=== PATIENT | male | born 1965 | race Two or more races ===

== ENCOUNTER 2025-08-31 23:05 | Emergency (ER) | payer MEDICAID, SELFPAY ==
[2025-08-31 23:05] VITALS: BMI 24.0
--- NOTE | 2025-08-31 23:19 | EKG_ITS ---
[facility] Test Date: 2025-08-31 Pat Name: OFELIA SHER Department: Room: - Gender: Male Gut Dropper: : 1965 Requested By: ED Temporary Provider Order Number: [id number] Reading MD: ED Temporary Provider Measurements Intervals [place] Rate: 74 P: 45 NH: 128 QRS: -25 QRSD: 102 T: 43 QT: 407 QTc: 452 Interpretive Statements SINUS RHYTHM BORDERLINE LEFT AXIS DEVIATION [QRS AXIS < -20] INCOMPLETE RIGHT BUNDLE BRANCH BLOCK [90+ ms QRS DURATION, TERMINAL R IN V1/V2, 40+ ms S IN I/aVL/V4/V5/V6] No previous ECG available for comparison /store/S0/[id number]/[id number].pdf
[2025-08-31 23:39] VITALS: BP 162/86; PULSE 73; RESP 20; TEMP 36.6; O2SAT 98
--- NOTE | 2025-08-31 23:45 | XR_ITS ---
EXAMINATION: PA chest single view TECHNIQUE: Upright PA chest single view Date and time: August 31, 2025, 11:45 p.m. INDICATIONS: Chest pain cardiac palpitation today FINDINGS: Normal heart size No lobar pneumonia or pulmonary edema The osseous structures are intact IMPRESSION: No active disease
--- NOTE | 2025-08-31 23:46 | PD.EDRME ---
Rapid Medical Screening Exam RME Arrival date/time: 08/31/25 23:05 This is a case of 60-year-old male with no medical history came into the emergency room due to chest pain palpitation shortness of breath for 2 days after drinking energy drink persistence of the symptoms this patient decided to start consulted in the emergency room Chief Complaint: General Adult/Misc Complain Time Seen by Provider: 08/31/25 23:45 Vital signs: Vital Signs Temperature 97.9 F 08/31/25 23:39 Pulse Rate 73 08/31/25 23:39 Respiratory Rate 20 08/31/25 23:39 Blood Pressure 162/86 H 08/31/25 23:39 Pulse Oximetry (%) 98 08/31/25 23:39 Oxygen Delivery Method Room Air 08/31/25 23:39
[2025-09-01 00:29] LABS: Collection Type, Urine Clean Catch; Squamous Epithelial Cell,Urine 0 /hpf (0-5); WBC,Urine 0 /hpf (0-5)
[2025-09-01 00:32] LABS: Basophils # (Auto) 0.1 Thou/mm3 (0.0-0.2); Basophils % (Auto) 1 % (0-2.5); Eosinophils # (Auto) 0.5 Thou/mm3 (0.0-0.5); Eosinophils % (Auto) 6 % (0-10); Hematocrit 41.1 % (41.0-53.0); Hemoglobin 14.2 g/dL (13.5-16.0); Immature Granulocytes Auto 0.02 Thou/mm3 (0.00-0.00); Lymphocytes # (Auto) 3.2 Thou/mm3 (1.0-4.8); Lymphocytes % (Auto) 41 % (10-50); Mean Corpuscular HGB Conc 34.5 g/dl (31.0-37.0); Mean Corpuscular Hemoglobin 30.9 pg (25.0-35.0); Mean Corpuscular Volume 90 fL (80-100); Monocytes # (Auto) 0.8 Thou/mm3 (0.0-0.8); Monocytes % (Auto) 10 % (0-12); Neutrophils # (Auto) 3.4 Thou/mm3 (1.8-7.7); Neutrophils % (Auto) 43 % (37-80); Nucleated Red Blood Cell # 0.00 Thou/mm3 (0.00-0.00); Nucleated Red Blood Cell % 0 /100 WBC (0); Platelet Count 277 Thou/mm3 (140-440); RDW Standard Deviation 43.3 fL (35.1-43.9); Red Blood Count 4.59 Miln/mm3 (4.50-5.90); White Blood Count 7.9 Thou/mm3 (3.8-10.6)
[2025-09-01 00:49] LABS: B-Type Natriuretic Peptide < 20 pg/mL (0-100)
[2025-09-01 00:54] LABS: Alanine Aminotransferase 22 U/L (10-49); Albumin, Serum 3.9 gm/dL (3.5-5.0); Albumin/Globulin Ratio 1.6 (1.2-2.2); Alkaline Phosphatase 70 U/L (46-116); Anion Gap 9 (7-16); Aspartate Amino Transferase 22 U/L (0-34); BUN/Creatinine Ratio 11 Ratio (12-20); Bilirubin,Total 0.2 mg/dL (0.3-1.2); Blood Urea Nitrogen 11 mg/dL (9-23); Calcium 9.7 mg/dL (8.3-10.6); Calcium (Corrected) 9.8 mg/dL (8.5-10.1); Carbon Dioxide 31.5 mMol/L (20.0-31.0); Chloride 104 mMol/L (98-107); Creatinine (Component) 1.0 mg/dL (0.6-1.3); Estimated Creatinine Clearance 67.4 mL/min (>60); Globulin 2.5 gm/dL (2.3-3.5); Glucose 130 mg/dL (74-106); Lipase 36 U/L (12-53); Osmolality,Calculated 288 (275-295); Potassium 4.0 mMol/L (3.4-5.1); Sodium 144 mMol/L (136-145); Thyroid Stimulating Hormone 2.28 uIU/mL (0.55-4.78); Total Protein 6.4 gm/dL (5.7-8.2); Troponin I < 0.020 ng/mL (0.0-0.045); eGFR > 60 See Note
[2025-09-01 00:58] LABS: Amorphous Crystals,Urine Present (Absent); Bilirubin,Urine Negative (Negative); Blood,Urine Negative (Negative); Clarity,Urine Turbid (Clear/Hazy); Color,Urine Lt-Yellow (Lt Yel-Yel); Glucose, Urine Negative (Negative); Ketones,Urine Negative (Negative); Leukocyte Esterase,Urine Negative (Negative); Nitrite,Urine Negative (Negative); PH,Urine 7.5 (5.0-7.0); Protein,Urine Negative (Neg - Trace); RBC,Urine 1 /hpf (0-3); Specific Gravity,Urine 1.020 (1.001-1.035); Urobilinogen,Urine Negative mg/dL (0.0-1.0)
[2025-09-01 01:05] LABS: D-Dimer < 250 ng/mL (<600)
--- NOTE | 2025-09-01 02:01 | PD.EDARRY ---
ED Arrhythmia Palp. RME/HPI General Chief Complaint: General Adult/Misc Complain Stated Complaint: RAPID HR AFTER DRINKING ENERGY DRINK Time Seen by Provider: 08/31/25 23:45 Arrival date/time: 08/31/25 23:05 RME / HPI RME / HPI narrative: 08/31/25 23:05 This is a case of 60-year-old male with no medical history came into the emergency room due to chest pain palpitation shortness of breath for 2 days after drinking energy drink persistence of the symptoms this patient decided to start consulted in the emergency room --------- Dr. Muniz?s Main ED Evaluation: 60yo male with sudden onset of palpitations at 10p lasting ~20 minutes. No chest pain, lightheadedness, or near syncope. No reported lower extremity pain or swelling. PSH includes ocular surgery. Denies alcohol, tobacco, or illicit drug use. Cardiac Risk Factors: +DM, HTN, HLD. No family history of heart disease. Related Data Previous Rx's ?Medication ?Instructions ?Recorded albuterol sulfate 90 mcg/actuation 2 puff inhalation Q4H PRN 10/04/18 aerosol inhaler shortness of breath or wheezing #8.5 grams Allergies Allergy/AdvReac Type Severity Reaction Status Date / Time No Known Allergies Allergy Verified 02/17/19 00:54 Review of Systems Review of Systems Systems Reviewed: All systems reviewed, normal except as documented Past Medical History Past Medical History CARDIAC: Positive Cardiac Disorders and Hypertension; Negative Congestive Heart Failure RESPIRATORY: Negative Chronic Obstructive Pulmonary Disease (COPD) GENITOURINARY: Negative Renal Disease ENDOCRINE: Negative Diabetes Mellitus Type 1 or Diabetes Mellitus Type 2 Surgical History SURGICAL: Positive Eye Surgery Social History SMOKING STATUS: Never smoker ED Exam Narrative Physical exam: GENERAL APPEARANCE: alert and oriented x 4, resting comfortably, reports symptoms have resolved, well-developed, well-nourished, no acute distress VITALS: All vitals were reviewed and the pulse ox is 98% on room air, which is normal according to my interpretation. HEENT: Normocephalic, atraumatic; pupils equal, round, reactive to light; EOMI; mucous membranes pink, moist; oropharynx clear NECK: Supple LUNGS: CTABL; no wheezes, no rales, no rhonchi HEART: Regular rate, regular rhythm; normal S1, S2; no murmurs ABDOMEN: non distended; soft, no tenderness EXTREMITIES: atraumatic; no edema NEUROLOGIC: awake; alert and oriented x4; cranial nerves II-XII grossly intact; no focal sensory or motor deficits PSYCHIATRIC: appropriate mood and affect SKIN: warm, dry, normal color; no rashes Course Course Course Narrative: CXR is ordered for determining the etiology of palpitations. Quality Measures none Orders Category Date Time Status EKG (ED ONLY) *Do not use* NOW Care 08/31/25 23:19 Completed EKG (ED Only) Stat Exams 08/31/25 23:19 Draft XR chest 1V Stat Exams 08/31/25 23:45 Completed BNP [B-Type Natriuretic Peptide] Stat Lab 08/31/25 00:07 Completed CBC Stat Lab 08/31/25 00:07 Completed Comprehensive Metabolic Panel Stat Lab 08/31/25 00:07 Completed D-Dimer Stat Lab 08/31/25 00:07 Completed Lipase Stat Lab 08/31/25 00:07 Completed TSH [Thyroid Stimulating Hormone] Stat Lab 08/31/25 00:07 Completed Troponin I Stat Lab 08/31/25 00:07 Completed Urinalysis Stat Lab 08/31/25 23:54 Completed Vital Signs Vital signs: Vital Signs Temperature 97.9 F 08/31/25 23:39 Pulse Rate 73 08/31/25 23:39 Respiratory Rate 20 08/31/25 23:39 Blood Pressure 162/86 H 08/31/25 23:39 Pulse Oximetry (%) 98 08/31/25 23:39 Oxygen Delivery Method Room Air 08/31/25 23:39 Arrhythmia/Palpitations MDM Narrative MDM Narrative:: Scribe Attestation: 09/01/25 Francoise Ruiz am scribing for and in the presence of Dr. Muniz. 60yo male with sudden onset of palpitations at 10p lasting ~20 minutes. No chest pain, lightheadedness, or near syncope. Please see PE findings. Lab markers including CBC, chemistries, and troponin are unremarkable. UA without evidence of infection. CXR obtained and is within normal limits. EKG without infarction, ischemia, or pericarditis. Further inquiry indicates patient had drank an energy drink late afternoon/early evening, which he typically drinks daily. Patient initially presented with HR 110-120 and spontaneously overtime reduced to 70-80. No signs of accessory pathway, [place], or prolonged QT syndrome. After period of observation, patient considered stable for discharge. Will recommend patient avoids energy drinks, increase fluid hydration, and follow-up with PMD for consideration of outpatient holter monitoring. Patient data External records reviewed:: [facility] previous records (Per chart review, patient was seen here on 10/04/18 for shortness of breath.) Clinical information provided by:: patient Social determinants that could affect healthcare access:: none Patient has the following chronic illnesses:: HTN How is presenting disease/condition affected by chronic disease/condition?: uneffected by Evaluation data The following diagnostics were reviewed and interpreted by me:: lab results, radiology exam(s) and EKG tracing(s) Lab and/or radiology exams considered but not ordered:: none Interpretation Summary: EKG done at 2339, sinus rhythm, rate of 79, no acute pathological ST segment changes, normal intervals, left axis deviation, underlying RBBB, according to my interpretation. [facility] Report Signed Patient: OFELIA SHER Record#: [id number] Birthdate: 1965 Age/Sex: 60 / M Location: [facility] Attending Dr: Ordering Physician: Yolanda Andrew Date of Service: 08/31/25 Procedure(s): XR chest 1V Accession Number(s): [id number] cc: Bear Veladre MD; Yolanda Andrew~ EXAMINATION: PA chest single view TECHNIQUE: Upright PA chest single view Date and time: August 31, 2025, 11:45 p.m. INDICATIONS: Chest pain cardiac palpitation today FINDINGS: Normal heart size No lobar pneumonia or pulmonary edema The osseous structures are intact IMPRESSION: No active disease Dictated By: Bear Velarde MD Signed By: <Electronically signed by Bear Velarde MD in OV> 08/31/25 0189 Medications / Prescriptions Medications or Prescriptions considered but not ordered:: none Medication administrations:: none Consultations Consultation(s) initiated? (list below): No Diagnosis Differential diagnosis arrhythmia/palpitations: palpitations, anxiety, sinus tachycardia, artial fibrillation, artial flutter and supraventricular tachycardia Most likely diagnosis given after review of the tests above:: see clinical impression below Admission Indicated Admission indicated?: not indicated Admission Request Was there a request for admission?: No Disposition Plan Disposition Plan: Discharge Discharge Attestation Discharge Attestation: The patient and all family members were given an opportunity to ask questions and understood the discharge instructions. Discharge instructions specifically effects, indications for sooner follow up or return to the emergency department, and the expected course of current diagnosis. Patient condition: Stable Discharge Plan Plan Patient Disposition: HOME (Self Care) Discharge Disposition comment: Stable Prescriptions/Referrals Prescriptions/Med Rec: No Action albuterol sulfate 90 mcg/actuation HFA aerosol inhaler 2 puff INH Q4H PRN (Reason: shortness of breath or wheezing) Qty: 8.5 0RF Referrals: Alex Stearns MD [Primary Care Provider, Family Practice] - In 1 week Problem List Clinical Impression: Palpitation Patient/Caregiver Discharge Instructions Discharge Activity: activity as tolerated Diet Instructions: Avoid concentrated caffeinated beverages. Additional Instructions: Avoid concentrated caffeinated beverages.. Increase free water intake. Follow-up with primary care doctor for referral for outpatient Holter monitoring. Return if worsening. Print Language: Portuguese Stand Alone Forms: [facility]ena Award Info., Patient Portal Info Letter
== END 2025-09-01 02:26 | disposition home or self-care (01) ==
PROVIDERS: Nurse Practitioner Family; Emergency Provider Emergency Medicine; PCP Family Medicine
DX: R07.9 Chest pain, unspecified (principal); E11.9 Type 2 diabetes mellitus without complications; E78.5 Hyperlipidemia, unspecified; I10 Essential (primary) hypertension; R00.2 Palpitations
CPT/HCPCS: 36415; 71045; 80053; 81001; 83690; 83880; 84443; 84484; 85025; 85379; 93005; 99283